=== PATIENT | female | born 2000 | race Two or more races ===

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

== ENCOUNTER 2021-01-30 14:39 | Emergency (ER) | payer OTHER ==
--- NOTE | 2021-01-30 15:04 | NUR ---
CALLED FOR TRIAGE, NO ANSWER
--- NOTE | 2021-01-30 15:15 | NUR ---
CALLED FOR TRIAGE, NO ANSWER
--- NOTE | 2021-01-30 15:32 | NUR ---
CALLED FOR TRIAGE, NO ANSWER
== END 2021-01-30 15:34 | disposition left against medical advice (07) ==
LOC: ED 15:00
DX: Z53.21 Procedure and treatment not carried out due to patient leaving prior to being seen by health care provider (principal)